=== PATIENT | male | born 1960 | race American Indian/Alaskan Native ===

== ENCOUNTER 2020-01-28 03:11 | Inpatient (IN) | payer OTHER ==
[~2020-01-28 03:11] MED LIST: ATROPINE 0.1% (1 MG/10 ML) CARDIAC SYRINGE ONE; CLOPIDOGREL 300 MG TAB ONE; DEXTROSE 50% IN WATER (25GM) 50 ML SYRINGE IV ONE; EPINEPHrine 1 MG/10 ML SYRINGE ONE; EPINEPHrine 30 MG/30 ML INJ IV ONE; HEPARIN 10,000 UNITS/10 ML VIAL ONE; SODIUM BICARB 8.4% 50 MEQ/50 ML SYRINGE IV ONE
[2020-01-28] MEDS ORDERED: CLOPIDOGREL 300 MG TAB PO ONE (03:30)
[2020-01-28] MEDS ORDERED: HEPARIN 1,000 UNIT/1 ML VIAL IV ONE (03:30)
--- NOTE | 2020-01-28 03:31 | Emergency Department Report ---
ED Chest Pain HPI - General Chief Complaint: Chest Pain Stated Complaint: CHEST PAIN Time Seen by Provider: 01/28/20 03:20 Source: patient, EMS Mode of arrival: Stretcher Limitations: No Limitations - History of Present Illness Initial Comments: 59-year-old male, history of hypertension (noncompliant with medication), presents to ED with chest pain. Patient admits to using alcohol, taking 1 Viagra pill, and using cocaine tonight. Patient states approximately 2 hours after the substances he began to experience substernal chest tightness. Nonradiating. He reports associated profuse diaphoresis with associated nausea. EMS attempted to transmit their twelve-lead EKG, however, they were unable to. EMS is suspicious that patient may have a STEMI. Patient was given aspirin by EMS. Patient has been hypotensive with systolic BP in the 90s. MD Complaint: chest pain -: hour(s) (1) Pain Location: substernal Pain Radiation: none Severity: severe Quality: tightness Consistency: constant Improves With: nothing Worsens With: nothing re: nausea, diaphoresis, dyspnea. denies: vomting Treatments Prior to Arrival: aspirin - Related Data Allergies Allergy/AdvReac Type Severity Reaction Status Date / Time No Known Allergies Allergy Verified 01/28/20 03:16 Heart Score - HEART Score History: Highly suspicious EKG: Significant ST-depression Age: 45-65 Risk factors: > 3 risk factors or hx of atherosclerotic disease Troponin: < normal limit HEART Score: 7 ED Review of Systems ROS: Stated complaint: CHEST PAIN Other details as noted in HPI Comment: All other systems reviewed and negative Respiratory: shortness of breath Cardiovascular: chest pain Gastrointestinal: nausea ED Past Medical Hx - Past Medical History Previous Medical History?: No - Surgical History Past Surgical History?: No - Social History Smoking Status: Current Every Day Smoker Substance Use Type: Alcohol, Cocaine ED Physical Exam - General Limitations: No Limitations General appearance: alert - Head Head exam: Present: atraumatic, normocephalic - Eye Eye exam: Present: normal appearance, EOMI - ENT ENT exam: Present: mucous membranes moist - Neck Neck exam: Present: normal inspection - Respiratory Respiratory exam: Present: normal lung sounds bilaterally. Absent: respiratory distress - Cardiovascular Cardiovascular Exam: Present: normal rhythm, bradycardia - GI/Abdominal GI/Abdominal exam: Present: soft. Absent: distended, tenderness - Extremities Exam Extremities exam: Present: normal inspection. Absent: pedal edema, calf tenderness - Neurological Exam Neurological exam: Present: alert, oriented X3, CN II-XII intact. Absent: motor sensory deficit - Psychiatric Psychiatric exam: Present: normal affect, normal mood - Skin Skin exam: Present: warm, dry, intact, normal color. Absent: rash ED Course Vital Signs 01/28/20 01/28/20 01/28/20 03:35 03:45 03:52 Pulse Rate 41 L 48 L 41 L Respiratory 11 L 15 12 Rate Blood Pressure 83/51 83/61 82/59 [Right] O2 Sat by Pulse 97 96 95 Oximetry EDELMIRA score - Ed[place]ira Score Age > 65: (0) No Aspirin use within the Past 7 Days: (0) No 3 or more CAD Risk Factors: (1) Yes 2 or more Angina events in past 24 hrs: (0) No Known CAD with more than 50% Stenosis: (0) No Elevated Cardiac Markers: (0) No ST Deviation Greater than 0.5mm: (1) Yes EDELMIRA Score: 2 ED Medical Decision Making - Lab Data Result diagrams: 01/28/20 Unknown 01/28/20 Unknown - EKG Data -: EKG Interpreted by Ks EKG shows normal: QRS complexes Rate: bradycardia (rate 42) - EKG Data Interpretation: other (junctional rhythm; inferior/posterior STEMI) - Radiology Data Radiology results: report reviewed, image reviewed - Medical Decision Making 59-year-old male presents to ED with chest pain. EKG shows acute LA, suggesting inferior/posterior LA. Patient is hypotensive with systolic BP in the 80s and bradycardic with heart rate as low as 41. Patient received aspirin from EMS. Here in ED he received Plavix and heparin bolus. He also received atropine 0.5 mg x 2 for his bradycardia, along with normal saline bolus for his hypotension. Dr. Ornelas to take patient to [facility]. Patient will be admitted by hospitalist, Dr. Moses, for further management. - Differential Diagnosis STEMI Critical Care Time: Yes Critical care time in (mins) excluding proc time.: 35 Critical care attestation.: If time is entered above; I have spent that time in minutes in the direct care of this critically ill patient, excluding procedure time. Critical Care Time: 35 min ED Disposition Clinical Impression: STEMI (ST elevation myocardial infarction) Disposition: -09 OP ADMIT IP TO THIS HOSP Is pt being admited?: Yes Condition: Critical Time of Disposition: 03:57
[2020-01-28] MEDS ORDERED: SODIUM CHLORIDE 0.9% 1000 ML 1,000 ML IV ONE (03:32)
[2020-01-28] MEDS ORDERED: ATROPINE 0.1% (1 MG/10 ML) CARDIAC SYRINGE ONE ×4 (03:41→05:08)
--- NOTE | 2020-01-28 03:43 | XRay Report ---
CHEST 1 VIEW INDICATION: chest pain COMPARISON: None FINDINGS: SUPPORT DEVICES: None. HEART / MEDIASTINUM: No significant abnormality. LUNGS / PLEURA: No significant pulmonary or pleural abnormality. No pneumothorax. ADDITIONAL FINDINGS: IMPRESSION: 1. No acute cardiopulmonary disease Signer Name: Wayne Ricci MD Signed: 01/28/2020 3:39 AM Workstation Name: [id number]
[2020-01-28 03:50] LABS: Basophils # (Auto) 0.1 K/mm3 (0.0-0.1); Basophils % (Auto) 0.5 % (0.0-1.8); Eosinophils % (Auto) 0.3 % (0.0-4.3); Hematocrit 43.1 % (35.5-45.6); Hemoglobin 14.5 gm/dl (11.8-15.2); Lymphocytes # (Auto) 1.5 K/mm3 (1.2-5.4); Mean Corpuscular HGB Conc 34 % (32-34); Mean Corpuscular Volume 93 fl (84-94); Monocytes # (Auto) 0.6 K/mm3 (0.0-0.8); Monocytes % (Auto) 4.1 % (0.0-7.3); Platelet Count 251 K/mm3 (140-440); Red Blood Count 4.65 M/mm3 (3.65-5.03)
[2020-01-28 04:00] LABS: INR 1.09 (0.87-1.13)
[2020-01-28] MEDS ORDERED: HEPARIN 10,000 UNITS/10 ML VIAL IV ONE (04:00)
[2020-01-28] MEDS ORDERED: MIDAZOLAM 2 MG/2 ML INJ ONE (04:01)
[2020-01-28] MEDS ORDERED: fentaNYL 100 MCG/2 ML INJ ONE (04:01)
[2020-01-28] MEDS ORDERED: HEPARIN/NS 5000 UNIT/500ML 1,000 ML IR ONE (04:02)
[2020-01-28] MEDS ORDERED: VERAPAMIL 5 MG/2 ML INJ ONE (04:02)
[2020-01-28] MEDS ORDERED: SODIUM CHLORIDE 0.9% 1000 ML 1,000 ML ONE (04:02)
[2020-01-28 04:11] LABS: BUN/Creatinine Ratio 9; Blood Urea Nitrogen 12 mg/dL (9-20); Calcium 9.2 mg/dL (8.4-10.2); Hemolysis Index 147
[2020-01-28] MEDS: LIDOCAINE (2%) 20 MG/1 ML VIAL 20 ML MDV INFILTRATI ONE ×2 (04:15→05:19)
[2020-01-28] MEDS: HEPARIN 10,000 UNITS/10 ML VIAL ONE ×2 (04:17→04:52)
[2020-01-28 04:22] LABS: Partial Thromboplastin Time 176.2 Sec. (24.2-36.6)
[2020-01-28] MEDS ORDERED: DOPamine/D5W 800 MG/250 ML 800 MG/250 ML BAG IV ONE (04:23)
[2020-01-28] MEDS ORDERED: HEPARIN/NS 5000 UNIT/500ML 500 ML IR ONE ×2 (04:31→05:10)
[2020-01-28] MEDS ORDERED: TIROFIBAN/NS 12,500 MCG/250 ML BAG IV ONE (04:39)
[2020-01-28] MEDS ORDERED: ONDANSETRON 4 MG/2 ML INJ ONE (04:46)
[2020-01-28] MEDS ORDERED: SODIUM CHLORIDE 0.9% 50 ML ONE (04:51)
[2020-01-28] MEDS ORDERED: AMIODARONE 150 MG/3 ML INJ IV ONE (04:51)
[2020-01-28] MEDS ORDERED: NORepinephrine/NS 4 MG-250 ML 4 MG/250 ML BAG IV SCH (05:00)
[2020-01-28] MEDS ORDERED: ACETAMINOPHEN 325 MG TAB PO PRN (05:23)
--- NOTE | 2020-01-28 05:35 | History and Physical Report ---
History of Present Illness Date of examination: 01/28/20 Date of admission: 01/28/20 03:58 Chief complaint: Chest Pain History of present illness: Patient is a 59-year-old -[place] male with known history of hypertension-( noncompliant with his medication) presenting to the emergency room today complaining of chest pain. Patient admits that he has been taking alcohol, 1 pill of Viagra I used cocaine tonight. He started experiencing some chest pain with feels like tightness a few hours after taking the above medications. Chest pain is said to be nonr adiating but he had associated nausea and diaphoresis. Patient arrived in the emergency room by EMS and was given aspirin in route to the hospital. He was said to be hypotensive with systolic blood pressure in the 90s. EKG was suspicious for STEMI. Patient was taken to the [facility]. Spoken with transplant immunologist . Findings were that of complete occlusion of the circumflex. No stent was placed.Balloon placed. Procedure done via right radial. Patient was started on low-dose heparin drip and Aggrastat. Patient will be reevaluated by the transplant immunologist within the next 24 hours. He will be closely monitored in the intensive care unit. Past History Past Medical History: No medical history Past Surgical History: No surgical history Social history: smoking (Current daily Smoker), alcohol abuse, other (Cocaine Abuse) Family history: no significant family history Medications and Allergies Allergies Allergy/AdvReac Type Severity Reaction Status Date / Time No Known Allergies Allergy Verified 01/28/20 03:16 Active Meds: Active Medications Acetaminophen (Tylenol) 650 mg PO Q6H PRN PRN Reason: Pain, Mild (1-3) Norepinephrine (Levophed Drip 4 Mg/Ns 250 Ml) 4 mg in 250 mls @ 7.5 mls/hr IV TITR MARIZOL; Protocol Last Admin: 01/28/20 04:49 Dose: 4 mls Documented by: Morphine Sulfate (Morphine) 2 mg IV Q5MIN PRN PRN Reason: Chest Pain Sodium Chloride (Sodium Chloride Flush Syringe 10 Ml) 10 ml IV PRN PRN PRN Reason: LINE FLUSH Sodium Chloride (Sodium Chloride Flush Syringe 10 Ml) 10 ml IV BID MARIZOL Sodium Chloride (Sodium Chloride Flush Syringe 10 Ml) 10 ml IV PRN PRN PRN Reason: LINE FLUSH Review of Systems Constitutional: no fever, no chills Ears, nose, mouth and throat: no nasal congestion, no sore throat Cardiovascular: chest pain, palpitations, no syncope Respiratory: no cough, no shortness of breath Genitourinary Male: no dysuria, no hematuria, no flank pain Musculoskeletal: no neck pain, no low back pain Integumentary: no rash, no pruritis Neurological: no headaches, no confusion Psychiatric: no anxiety, no depression Exam - Constitutional Vitals: Temp Pulse Resp BP Pulse Ox 41 L 12 82/59 95 01/28/20 03:52 01/28/20 03:52 01/28/20 03:52 01/28/20 03:52 General appearance: Present: mild distress, well-nourished - EENT Eyes: Present: PERRL, EOM intact ENT: hearing intact, clear oral mucosa, dentition normal - Neck Neck: Present: supple, normal ROM - Respiratory Respiratory effort: normal Respiratory: bilateral: CTA - Cardiovascular Rhythm: regular Heart Sounds: Present: S1 & S2. Absent: gallop, systolic murmur, diastolic murmur, rub - Extremities Extremities: no ischemia, pulses intact, pulses symmetrical, No edema, Full ROM Peripheral Pulses: within normal limits - Abdominal General gastrointestinal: Present: soft, non-tender, non-distended, normal bowel sounds. Absent: mass - Integumentary Integumentary: Present: clear, warm, dry - Musculoskeletal Musculoskeletal: strength equal bilaterally - Psychiatric Psychiatric: appropriate mood/affect, intact judgment & insight, memory intact, cooperative - Neurologic Neurologic: CNII-XII intact, no focal deficits, moves all extremities HEART Score - HEART Score EKG: Significant ST-depression Age: 45-65 Risk factors: > 3 risk factors or hx of atherosclerotic disease Troponin: Troponin T < 0.010 ng/mL (0.00-0.029) 01/28/20 Unknown Troponin: < normal limit Results - Labs CBC & Chem 7: 01/28/20 Unknown 01/28/20 Unknown Labs: Abnormal lab results 01/28/20 01/28/20 01/28/20 Range/Units Unknown Unknown Unknown WBC 15.5 H (4.5-11.0) K/mm3 Lymph % (Auto) 10.0 L (13.4-35.0) % Seg Neutrophils % 85.1 H (40.0-70.0) % Seg Neutrophils # 13.2 H (1.8-7.7) K/mm3 APTT 176.2 H* (24.2-36.6) Sec. Carbon Dioxide 15 L (22-30) mmol/L Creatinine 1.4 H (0.8-1.3) mg/dL Glucose 132 H (75-100) mg/dL Assessment and Plan - Patient Problems (1) STEMI (ST elevation myocardial infarction) Current Visit: Yes Status: Acute Plan to address problem: Patient was taken to the [facility] and findings were notable complete occlusion of the circumflex. Patient started on Aggrastat and low-dose heparin drip. (2) DVT prophylaxis Current Visit: Yes Status: Acute Plan to address problem: Patient currently on anticoagulation. (3) Full code status Current Visit: Yes Status: Acute
[2020-01-28] MEDS ORDERED: MORPHINE 2 MG/1 ML INJ IV PRN (05:57)
[2020-01-28] MEDS ORDERED: HEPARIN/ 0.45% NACL DRIP 25,000 UNIT/500 ML BAG IV SCH (06:00)
[2020-01-28] MEDS: NORepinephrine/NS 4 MG-250 ML 4 MG/250 ML BAG IV SCH ×3 (07:00→11:56)
[2020-01-28] MEDS ORDERED: TIROFIBAN/NS 12,500 MCG/250 ML BAG IV SCH (07:00)
--- NOTE | 2020-01-28 08:56 | Consultation ---
History of Present Illness Consult date: 01/28/20 Requesting physician: ERIC DELATORRE Consult reason: other (STEMI) History of present illness: Pt is a 59 y.o. AA male with a hx of HTN, previously unknown to our practice, who presented overnight with complaints of constant substernal chest tightness associated with diaphoresis and nausea x 3 hours prior to arrival. Pt admits to EtOH use and cocaine use prior to onset of chest pain. He also took Viagra x 1 yesterday evening. Pt denies any additional cardiac complaints. Upon arrival, he was found to be hypotensive with SBP 80-90s. He was given NS bolus. Initial ECG showed sinus bradycardia with ST elevation suggestive of inferior/posterior ischemia. Pt was given IV atropine x 1, along with Plavix and IV heparin bolus. 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 Balloon placed, no stent. Pt is currently hemodynamically unstable - on Levo drip @ 26 mcg/min. He also remains on Aggrastat drip and heparin drip. Upon exam, pt is agitated and tachycardic in the 130s. No previous cardiac workup available for review. Past History Past Medical History: hypertension Social history: smoking (current daily smoker), alcohol abuse, other (cocaine abuse) Medications and Allergies Allergies Allergy/AdvReac Type Severity Reaction Status Date / Time No Known Allergies Allergy Verified 01/28/20 03:16 Active Meds: Active Medications Acetaminophen (Tylenol) 650 mg PO Q6H PRN PRN Reason: Pain, Mild (1-3) Aspirin (Ecotrin) 325 mg PO QDAY MARIZOL Heparin Sodium/Sodium Chloride (Heparin/ 0.45% Nacl-25,000 Unit/500 Ml) 25,000 unit in 500 mls @ 18 mls/hr IV TITRATE MARIZOL; Protocol Last Admin: 01/28/20 06:18 Dose: 20 mls Documented by: Tirofiban/Sodium Chloride (Aggrastat Drip (12.5 Mg/250 Ml)) 12,500 mcg in 250 mls @ 6 mls/hr IV DIRECT MARIZOL; Protocol Stop: 01/29/20 10:30 Last Admin: 01/28/20 08:30 Dose: 6 mls/hr Documented by: Norepinephrine (Levophed Drip 4 Mg/Ns 250 Ml) 4 mg in 250 mls @ 7.5 mls/hr IV TITR MARIZOL; Protocol Morphine Sulfate (Morphine) 2 mg IV Q5M PRN PRN Reason: Chest Pain unrelieved by NTG Sodium Chloride (Sodium Chloride Flush Syringe 10 Ml) 10 ml IV BID MARIZOL Sodium Chloride (Sodium Chloride Flush Syringe 10 Ml) 10 ml IV PRN PRN PRN Reason: LINE FLUSH Review of Systems Constitutional: sweats, no fever, no chills Ears, nose, mouth and throat: no nasal congestion, no sore throat Cardiovascular: chest pain, shortness of breath, no orthopnea, no palpitations, no edema, no syncope, no lightheadedness, no dyspnea on exertion, no paroxysmal nocturnal dyspnea, no claudication Respiratory: shortness of breath, no cough, no dyspnea on exertion, no congestion, no wheezing Gastrointestinal: nausea, no abdominal pain, no vomiting, no diarrhea, no constipation Genitourinary Male: no dysuria, no flank pain Musculoskeletal: no neck stiffness, no neck pain, no myalgias Integumentary: no rash, no wounds Neurological: no head injury, no paralysis, no weakness, no parathesias, no numbness, no tingling, no seizures, no syncope, no vertigo, no headaches Endocrine: no cold intolerance, no heat intolerance, no polydipsia, no polyuria Hematologic/Lymphatic: no easy bruising, no easy bleeding Allergic/Immunologic: no urticaria Physical Examination Last Vital Signs Temp 97.7 F 01/28/20 08:00 Pulse 41 L 01/28/20 03:52 Resp 12 01/28/20 03:52 BP 82/59 01/28/20 03:52 Pulse Ox 95 01/28/20 03:52 General appearance: mild distress HEENT: Positive: EOMI, Normocephaly, Mucus Membranes Moist Neck: Positive: neck supple, trachea midline. Negative: JVD/HJR Cardiac: Positive: S1/S2, Tachycardia Lungs: Positive: Decreased Breath Sounds, Rhonchi Neuro: Positive: Grossly Intact Abdomen: Positive: Soft, Active Bowel Sounds. Negative: Tender Skin: Negative: Rash Incision: Cardiac Cath Site (small R groin hematoma) Musculoskeletal: No Pain Extremities: Present: upper extr. pulses, lower extr. pulses, edema (++ scrotal edema) Results 01/28/20 Unknown 01/28/20 Unknown Coagulation 01/28/20 Range/Units Unknown PT 14.3 (12.2-14.9) Sec. INR 1.09 (0.87-1.13) APTT 176.2 H* (24.2-36.6) Sec. CBC 01/28/20 Range/Units Unknown WBC 15.5 H (4.5-11.0) K/mm3 RBC 4.65 (3.65-5.03) M/mm3 Hgb 14.5 (11.8-15.2) gm/dl Hct 43.1 (35.5-45.6) % Plt Count 251 (140-440) K/mm3 Lymph # 1.5 (1.2-5.4) K/mm3 Dickson # 0.6 (0.0-0.8) K/mm3 Eos # 0.0 (0.0-0.4) K/mm3 Baso # 0.1 (0.0-0.1) K/mm3 Comprehensive Metabolic Panel 01/28/20 Range/Units Unknown Sodium 139 (137-145) mmol/L Potassium 3.8 (3.6-5.0) mmol/L Chloride 100.9 (98-107) mmol/L Carbon Dioxide 15 L (22-30) mmol/L BUN 12 (9-20) mg/dL Creatinine 1.4 H (0.8-1.3) mg/dL Glucose 132 H (75-100) mg/dL Calcium 9.2 (8.4-10.2) mg/dL - Imaging and Cardiology Echo: pending Cardiac cath: report reviewed EKG: report reviewed, image reviewed EKG interpretations - Telemetry EKG Rhythm: Sinus Tachycardia - EKG Sinus rhythms and dysrhythmias: sinus bradycardia Repolarization changes or abnormalities: ST or T wave suggestive of ischemia Myocardial infarction: inferior ME (acute or rec, posterior ME (acute or re Assessment and Plan D/c Aggrastat drip. Cont heparin drip, bASA, and Plavix. Wean pressors as tolerated. Suspect withdrawal sx. Consider CIWA protocol. May require intubation. Echo pending. Plan for repeat [facility] tmr. NPO after midnight. Pt seen in conjunction with Dr. Ornelas, who agrees with the assessment and plan of care. - Patient Problems (1) Acute myocardial infarction Current Visit: Yes Status: Acute Qualifiers: Myocardial infarction type: ST elevation myocardial infarction Involved coronary artery: left circumflex coronary artery Qualified Code(s): I21.21 - ST elevation (STEMI) myocardial infarction involving left circumflex coronary artery (2) Groin hematoma Current Visit: Yes Status: Acute (3) Drug withdrawal Current Visit: Yes Status: Suspected Plan to address problem: Cocaine, EtOH (4) H/O: HTN (hypertension) Current Visit: No Status: Chronic Plan to address problem: Hypotensive this admission (5) Cocaine abuse Current Visit: Yes Status: Chronic (6) ETOH abuse Current Visit: Yes Status: Chronic (7) Medical non-compliance Current Visit: Yes Status: Chronic
[2020-01-28] MEDS ORDERED: LORazepam 2 MG/ML VIAL IV ONE (09:42)
[2020-01-28] MEDS ORDERED: ASPIRIN EC 325 MG TAB PO SCH (10:00)
--- NOTE | 2020-01-28 10:31 | Consultation ---
History of Present Illness Consult date: 01/28/20 Requesting physician: BETO BERNAL History of present illness: Pt is a 59 y.o. AA male with a hx of HTN, previously unknown to our practice, who presented overnight with complaints of constant substernal chest tightness associated with diaphoresis and nausea x 3 hours prior to arrival. Pt admits to EtOH use and cocaine use prior to onset of chest pain. He also took Viagra x 1 yesterday evening. Pt denies any additional cardiac complaints. Upon arrival, he was found to be hypotensive with SBP 80-90s. He was given NS bolus. Initial ECG showed sinus bradycardia with ST elevation suggestive of inferior/posterior ischemia. Pt was given IV atropine x 1, along with Plavix and IV heparin bolus. 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 Pt is currently hemodynamically unstable [place] [place] also [place] on heparin drip. Admitted to the ICU . I have been consulted for critical care management Patient seen and examined. Extreme agitation, hypotensive. Oxygen saturations, 98%, just received IV Ativan for agitation Past History Past Medical History: hypertension Past Surgical History: No surgical history Social history: smoking (current daily smoker), alcohol abuse, other (cocaine abuse) Family history: no significant family history Medications and Allergies Allergies Allergy/AdvReac Type Severity Reaction Status Date / Time No Known Allergies Allergy Verified 01/28/20 03:16 Active Meds: Active Medications Acetaminophen (Tylenol) 650 mg PO Q6H PRN PRN Reason: Pain, Mild (1-3) Aspirin (Ecotrin) 325 mg PO QDAY MARIZOL Heparin Sodium/Sodium Chloride (Heparin/ 0.45% Nacl-25,000 Unit/500 Ml) 25,000 unit in 500 mls @ 18 mls/hr IV TITRATE MARIZOL; Protocol Last Admin: 01/28/20 06:18 Dose: 20 mls Documented by: Tirofiban/Sodium Chloride (Aggrastat Drip (12.5 Mg/250 Ml)) 12,500 mcg in 250 mls @ 6 mls/hr IV DIRECT MARIZOL; Protocol Stop: 01/29/20 10:30 Last Admin: 01/28/20 08:30 Dose: 6 mls/hr Documented by: Norepinephrine (Levophed Drip 4 Mg/Ns 250 Ml) 4 mg in 250 mls @ 7.5 mls/hr IV TITR MARIZOL; Protocol Last Titration: 01/28/20 09:15 Dose: 22 mcg/min, 82.5 mls/hr Documented by: Morphine Sulfate (Morphine) 2 mg IV Q5M PRN PRN Reason: Chest Pain unrelieved by NTG Sodium Chloride (Sodium Chloride Flush Syringe 10 Ml) 10 ml IV BID MARIZOL Sodium Chloride (Sodium Chloride Flush Syringe 10 Ml) 10 ml IV PRN PRN PRN Reason: LINE FLUSH Review of Systems ROS unobtainable: due to mental status Physical Examination Vital signs: Vital Signs Pulse Resp BP Pulse Ox 41 L 11 L 83/51 97 01/28/20 03:35 01/28/20 03:35 01/28/20 03:35 01/28/20 03:35 General appearance: mild distress, extreme agitation HEENT: Positive: EOMI, Normocephalic, Mucus Membranes Moist Neck: Positive: neck supple, trachea midline. Negative: JVD/HJR Cardiac: Positive: S1/S2, Tachycardia Lungs: Positive: Decreased Breath Sounds, Rhonchi Neuro: Positive: moves all extremities, not obeying commands Abdomen: Positive: Soft, Active Bowel Sounds. Negative: Tender Skin: Negative: Rash Incision: Cardiac Cath Site (R groin hematoma) Musculoskeletal: No Pain Extremities: Present: upper extr. pulses, lower extr. pulses, edema (++ scrotal edema) Results - Laboratory Findings CBC and BMP: 01/28/20 Unknown 01/28/20 Unknown PT/INR, D-dimer PT 14.3 Sec. 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 Cocaine use disorder Cardiogenic shock Tobacco use disorder Leukocytosis Anemia- blood loss, drop of hemoglobin by 2gram Metabolic acidosis -Supplemental oxygen to keep O2 sats >92% -Stat ABG ordered to evaluate acid base -Add vasopressin to vasopressor support -Get CBC, may nee supportive blood transfusions in view of STEMI an active coronary ischemia -If we are unable to support blood pressure, may need placement of IABP -Avoid benzodiazepines if possible -Treat cocaine withdrawal symptoms, nicotine withdrawal precatuions -Cardioprotective measures, STEMI per Cardiology -Place small bowel feeding tube fro nutritional support and medications- his mental status at this time puts him at high risk for aspiration -Aspiration precautions, HOB >40 -Keep NPO for now -Monitor the right groin hematoma Critical care time 40 mins, in this critically ill patient with STEMI, cardiogen ic shock Condition- Critical Prognosis- Guarded Code status -Full code
[2020-01-28] MEDS ORDERED: ASPIRIN EC 81 MG TAB PO SCH (11:00)
--- NOTE | 2020-01-28 11:15 | Consultation ---
CARDIOLOGY CONSULTATION HISTORY OF PRESENT ILLNESS: The patient is a 59-year-old -[place] gentleman with history of hypertension and hyperlipidemia for a while, but he is not on any medications, without any medical followup, was using cocaine and also drinking alcohol along with using Viagra and started having chest pain 1-2 hours prior to presentation to the Emergency Room. The EKG done by the paramedics showed evidence of ST elevations in the inferior leads along with ST depression consistent with acute inferior STEMI. Hence, a STEMI protocol was followed and the patient was taken to the catheterization laboratory on an emergency basis. The patient's blood pressure at the time of presentation to the catheterization is low, 70 systolic with heart rate 50 beats per minute. The patient is on dopamine. The patient is still having chest pain. Please refer to the catheterization laboratory for further details. The patient's other past medical history except for hypertension and hyperlipidemia, denies any previous history of myocardial infarction or congestive heart failure, strokes or seizures. SOCIAL HISTORY: He uses drugs including cocaine, drinks alcohol and probably smokes. REVIEW OF SYSTEMS: Denies any previous history of myocardial infarction, no complaints of chest pains in the recent past. However, did not have any medical followup, on no medication. No history of strokes or seizures. No history of pulmonary emboli or DVT. No history of GI bleed. Denies any fever, coughing, chills, no urinary symptoms prior to this episode. No leg swelling. No orthopnea. PHYSICAL EXAMINATION: GENERAL: The patient on presentation to the catheterization laboratory, he is hypotensive, bradycardic. Having chest pain. No respiratory distress, breathing reasonably well. HEENT: Unremarkable. Conjunctivae pink. Sclerae anicteric. HEART: Regular, slow, no significant murmurs. LUNGS: Clear. ABDOMEN: Benign. EXTREMITIES: Without edema. NEUROLOGIC: Alert, oriented x 3. FINAL IMPRESSION: Acute inferior wall myocardial infarction of 1-2 hours' duration with hypotension, bradycardia. EKG findings suggestive of acute inferior ST-elevation myocardial infarction. The patient was continued on supportive treatment with dopamine and Levophed to support the blood pressure. The patient was taken to the catheterization laboratory and right radial approach was used. This showed occlusion of a large, dominant circumflex artery with huge amounts of thrombus in the circumflex artery and 60% mid LAD lesion, which is a large vessel and very small nondominant RCA showing a 70% mid lesion. The patient underwent emergency catheterization and angioplasty using right radial artery. The patient was hypotensive and bradycardic with episodic reperfusion arrhythmia including ventricular tachycardia. Required IV amiodarone. The patient had extensive thrombus in the circumflex artery. Underwent multiple balloon dilations and started on Aggrastat. His lesions markedly improved with Aggrastat and his thrombus also improved with EDELMIRA 0 flow being converted to EDELMIRA 3. The patient continued to be hypotensive and bradycardic and plans being made to insert a temporary pacemaker and also an intra-aortic balloon pump. However, after inserting the venous line in the groin, the patient's heart rate came to be tachycardic and blood pressure went up to 160-170 systolic. Considering this, no temporary pacemaker was inserted and no intra-aortic balloon pump was inserted. A venous sheath was left in the right groin. Radial sheath was removed and pressure bandage was applied at the end of the procedure. The patient is alert, oriented x 3, in no acute distress. Chest pain completely improved. The patient is in mild sinus tachycardia, blood pressure 110/70. Acute inferior wall myocardial infarction with extensive thrombosis involving the dominant circumflex artery, requiring balloon angioplasty and IIb/IIIa inhibitor, Aggrastat. Also, heparin was given. The patient will be continued on Levophed for now. His dopamine was discontinued in the catheterization laboratory. PLAN: Plan at this time is to monitor him in the CCU. Continue Aggrastat for 24 hours. Continue low intensity heparin. Continue aspirin and Plavix and atorvastatin. We will consider beta blockers if the blood pressure and heart rate continues to be stable. It is to be noted the patient's left ventricular systolic function appears to be normal. Findings were explained to the patient. No family members available. The patient is being admitted to ICU and will be closely monitored. JOB# [id number] DANIELITO/CHARI
[2020-01-28 11:27] LABS: Hematocrit 25.3 % (35.5-45.6); Mean Corpuscular HGB Conc 32 % (32-34); Mean Corpuscular Volume 98 fl (84-94); Platelet Count 204 K/mm3 (140-440); Red Blood Count 2.59 M/mm3 (3.65-5.03); Red Cell Distribution Width 14.4 % (13.2-15.2)
[2020-01-28 11:35] LABS: INR 1.61 (0.87-1.13)
[2020-01-28 11:38] LABS: Chol/HDL Ratio 2.74 %
[2020-01-28] MEDS ORDERED: SODIUM CHLORIDE 0.9% 500 ML 500 ML IV SCH (12:00)
[2020-01-28] MEDS ORDERED: QUEtiapine 200 MG TAB PO SCH (12:00)
[2020-01-28] MEDS ORDERED: VASOPRESSIN 20 UNIT in SODIUM CHLORIDE 0.9% 100 ML IV SCH (12:00)
[2020-01-28] MEDS: PHENobarbitaL 130 MG/ML VIAL IV STA ×2 (12:05→12:10)
[2020-01-28 12:18] LABS: Partial Thromboplastin Time > 240.0 Sec. (24.2-36.6)
[2020-01-28] MEDS ORDERED: SODIUM CHLORIDE 0.9% 1000 ML 1,000 ML IV SCH (12:30)
[2020-01-28 12:36] LABS: Band Neutrophils # (Manual) 0.7 K/mm3; Basophils % (Manual) 0 % (0.0-1.8); Eosinophils % (Manual) 0 % (0.0-4.3); Monocytes % (Manual) 0 % (0.0-7.3); Myelocytes # (Manual) 0.4 K/mm3; Platelet Estimate Consistent w Auto; RBC Morphology Normal; Total Cells Counted 100
--- NOTE | 2020-01-28 12:38 | Event Note ---
Date: 01/28/20 I responded to the floor full CODE BLUE. Hospitalist at the bedside directing ACLS. I performed a crash intubation - Intubation Time Out Performed: Yes Sedative: none Laryngoscope: none Size: 4 ET Tube Size: 7.5 Tube Secured Depth (cm): 24 Tube Secured Location: lips Tube Placement Confirmation: visualized tube passing t, equal breath sounds bilat, no breath sounds over epi, confirmation by capnometr Intubation Complications: none
[2020-01-28 12:40] LABS: ABG Base Excess -3.2 mmol/L (-2.0-3.0); ABG HCO3 19.6 mmol/L (20.0-26.0); ABG Methemoglobin 0.7 % (0.0-1.5); ABG Oxygen Saturation 87.6 % (95.0-99.0); ABG PCO2 29.7 mm Hg; ABG PH 7.439 pH Units (7.350-7.450); ABG PO2 53.3 mm Hg (80.0-90.0)
[2020-01-28] MEDS ORDERED: SODIUM BICARB 8.4% 50 MEQ/50 ML SYRINGE IV STA (12:48)
[2020-01-28] MEDS ORDERED: fentaNYL 100 MCG/2 ML INJ IV PRN (12:53)
[2020-01-28] MEDS ORDERED: LIP THERAPY VASELINE TP PRN (12:53)
[2020-01-28] MEDS ORDERED: MINERAL OIL/PETROLATUM, WHITE OPHTH OINT 3.5 GM OU PRN (12:53)
--- NOTE | 2020-01-28 12:54 | Event Note ---
Date: 01/28/20 Code blue at 12:23PM. CPR was initiateed immediately at bedside. He received 3 amp EPI, 1 bicarb, Calcium gluconate and atropine. ROSC obtained. Vitals after ROSC notable for hypotension. Patient already on levophed and vasopressin Bolus 500 cc ordered. Will add phenylephrine Cardiology paged.
[2020-01-28] MEDS ORDERED: fentaNYL DRIP Premix 2,000 MCG/100 ML BAG IV SCH (13:00)
[2020-01-28 13:42] LABS: Calcium 7.9 mg/dL (8.4-10.2)
[2020-01-28] MEDS ORDERED: PHENYLEPHRINE 100 MG in SODIUM CHLORIDE 0.9% 90 ML IV SCH (13:45)
[2020-01-28] MEDS ORDERED: LACTATED RINGERS 250 ML IV ONE (13:47)
[2020-01-28] MEDS ORDERED: DOPamine/D5W 800 MG/250 ML 800 MG/250 ML BAG IV SCH (14:00)
--- NOTE | 2020-01-28 14:04 | Event Note ---
Date: 01/28/20 Cardiopulmonary arrest- asystole with ROSC Orally intubated now. Ordered Cook catheter, ABG, 2 amp bicarbonate, stat BMP Fentanyl infusion, small bowel feeding tube
--- NOTE | 2020-01-28 14:16 | XRay Report ---
CHEST 1 VIEW 01/28/2020 1:02 PM INDICATION / CLINICAL INFORMATION: ETT placement. COMPARISON: None available. FINDINGS: SUPPORT DEVICES: Endotracheal tube tip projects approximately 3 cm superior to the dion. HEART / MEDIASTINUM: Stable. LUNGS / PLEURA: Diffuse bilateral interstitial prominence has developed since earlier today. No pneum othorax. ADDITIONAL FINDINGS: No significant additional findings. IMPRESSION: 1. Endotracheal tube projects in expected position. 2. Diffuse interstitial prominence bilaterally is suggestive of interstitial edema. Signer Name: Ace Villalpando MD Signed: 01/28/2020 2:12 PM Workstation Name: [id number]
[2020-01-28 14:18] VITALS: BP 62/43
--- NOTE | 2020-01-28 14:25 | Event Note ---
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 cause of appears multifactorial including acute HI with cardiogenic shock,multiple drug use and also withdrawl syndrome prior to his . explained findings to patient's family.
--- NOTE | 2020-01-28 15:40 | Death Summary ---
Summary - Providers Date of service: 01/28/20 Consults: 01/28/20 Consult to Cardiac Rehabilitation [CONS] Routine Reason For Exam: Phase I Consult to Cardiac Rehabilitation [CONS] Routine Reason For Exam: post pci 01/28/20 04:14 Consult to Physician [CONS] Stat Comment: Consulting Provider: KENNETH BOLES Physician Instructions: Reason For Exam: stemi 01/28/20 05:23 Consult to Dietitian/Nutrition [CONS] Routine Physician Instructions: Reason For Exam: Reason for Consult: Diet education 01/28/20 06:16 Consult to Physician [CONS] Routine Comment: Consulting Provider: LINDA MANZANO Physician Instructions: Reason For Exam: CHEST PAIN, MYOCARDIAL INFARCTION S/P CATH. Attending: BETO BERNAL - summary Date of admission: 01/28/20 03:58 Date of : 01/28/20 Reason for admission: STEMI Procedures/treatments rendered: Patient is a 59-year-old -[place] male with known history of hypertension-( noncompliant with his medication) presenting to the emergency room today complaining of chest pain. Patient admits that he has been taking alcohol, 1 pill of Viagra I used cocaine tonight. He started experiencing some chest pain with feels like tightness a few hours after taking the above medications. Chest pain is said to be nonradiating but he had associated nausea and diaphoresis. Patient arrived in the emergency room by EMS and was given aspirin in route to the hospital. He was said to be hypotensive with systolic blood pressure in the 90s. EKG was suspicious for STEMI. Patient was taken to the [facility]. Spoken with locomotive supervisor . Findings were that of complete occlusion of the circumflex. No stent was placed. Balloon placed. Procedure done via right radial and he was admitted to the ICU. He remained hypotensive and had to be placed on pressors. Jr jarvis was called this AM and ACLS protocol was initiated with ROSC. Cardiology team was consulted and dopamine was added. Plan to place IABP was initiated but immediately coded 2 times and despite full ACLS protocol, he could not get any ROSC. Patient was pronounced at 14:00. I called family and spoke with and daughter and extended my condolences. - Final diagnosis (1) Cardiogenic shock Note: Final diagnosis: (2) STEMI (ST elevation myocardial infarction) Note: Final diagnosis: (3) ETOH abuse Note: Final diagnosis: (4) Drug withdrawal Note: Final diagnosis:
[2020-01-29] MEDS ORDERED: CLOPIDOGREL 75 MG TAB PO SCH (10:00)
[2020-01-29] MEDS ORDERED: ASPIRIN EC 81 MG TAB PO SCH (10:00)
--- NOTE | 2020-01-30 14:42 | Cardiac Catherization Report ---
CARDIAC CATHETERIZATION AND CORONARY INTERVENTION REPORT CLINICAL INFORMATION: This is an emergency procedure for STEMI protocol. The patient is a 59-year-old -Fil[place] gentleman with history of hypertension and hyperlipidemia. He used to be on medication, but did not have any medical followup and on no medication for a long time. Otherwise, denies any previous cardiac history. The patient apparently was using cocaine and drinking alcohol in addition to using Viagra and started having chest pain and paramedics were called who performed an EKG, which showed ST elevations in the inferior leads along with ST depressions suggestive of acute inferior STEMI and the patient presented to the Emergency Room with low blood pressure, started on dopamine. Given Plavix and heparin in the Emergency Room, was transferred to the catheterization laboratory on an emergency basis. The patient's blood pressure at the time of presentation to the catheterization laboratory 60-70 systolic with heart rate of about 40-50 with junctional rhythm and sinus bradycardia. The patient still continues to have chest pain. The patient was continued on dopamine and Levophed was added. The patient underwent emergency catheterization, which showed the following findings. DESCRIPTION OF PROCEDURE: The patient was brought to the catheterization laboratory in the past on an emergency basis. The patient was prepared in a standard fashion. The patient, as mentioned above, was hypotensive, bradycardic requiring dopamine and Levophed. Not intubated. Continues to have chest pain. Right radial artery area was prepared in a standard fashion. Sterile drapes were applied. Local anesthesia was given in the right wrist area and right radial artery puncture was made using 21-gauge arterial puncture needle. Subsequently, 5-Tongan slender sheath was introduced. The patient received 4000 units of heparin in the Emergency Room and was given 3000 units of heparin in the catheterization laboratory in addition to verapamil. Left ventriculogram and coronary angiography was performed using a 6-Tongan multipurpose catheter. For obtaining the left coronary angiograms, EBU 3.5 guiding catheter was used. Following findings were noted. Left ventriculogram done in PALMER projection using hand injection in PALMER and BRANDO projection showed normal sized left ventricle with normal contractility. End-diastolic pressure of 25. Mitral regurgitation was not evaluated. HEMODYNAMICS: 1. Aortic pressure 85/47 on dopamine and Levophed. Left ventricular pressure 85/25. 2. Right coronary artery, small nondominant vessel shows smooth 70% lesion in the mid part of this is segmental and 1.5 mm in caliber. 3. Left coronary artery arises normally from left coronary cusp. Left main is short without significant disease. LAD shows mild irregularities proximally with a 50-60% smooth long lesion in the mid part; however, this is smooth. LAD curves around the apex and is tortuous with no significant disease except for the mid lesion. Circumflex: Circumflex artery dominant vessel is totally occluded in the proximal part of the small marginal branch. A small marginal branch, which is a 1.5 mm caliber, has a 60% lesion in the mid part. The circumflex artery is completely thrombotic showing significant hanging of the dye and totally occluded in the proximal part with EDELMIRA 0 flow and no distal vessel was visualized except for dye hanging in the mid part of the circumflex artery suggesting thrombus. Subsequently, the patient was given extra dose of heparin, 0.014 inch [place] XT guidewire was advanced into the marginal branch and second wire was advanced into the circumflex artery in the AV groove into the distal part with some difficulty. This vessel was dilated multiple times starting from the proximal circumflex artery to the distal vessel multiple times. He still has significant thrombus and only EDELMIRA 1 flow was noted. The patient was started on Aggrastat and after starting the Aggrastat, the patient slowly had visualization of the distal vessels. A very distal bifurcation lesion was noted and this was dilated with a balloon and this showed marked improvement. The patient continued to be hypotensive requiring dopamine and Levophed during the procedure along with IV fluids and also the patient required atropine. The patient also developed a re-perfusion abnormalities including ventricular tachycardia requiring a bolus of IV amiodarone. Subsequently, EDELMIRA 3 flow was obtained in the dominant circumflex artery with no obvious obstructive lesions remaining. Considering diffuse nature of the disease with multiple inflations of the balloon down from proximal to distal vessel and good result. Stenting was not performed at this point. Only mild diffuse lesions were noted with balloon angioplasty. The patient continued to be hypotensive requiring dopamine and Levophed. Considering this, it was decided to proceed with placement of intraaortic balloon pump and a temporary pacemaker. Venous access was obtained in the right groin. A venous sheath was inserted by this time, the patient became tachycardic, sinus tachycardia at 130-140 and also systolic blood pressure up to 170 mmHg. Hence, no temporary pacemaker was inserted. Similarly intraaortic balloon pump was not inserted. The patient's dopamine was discontinued. Blood pressure 110 on small dose of Levophed. We will continue the same. We will continue Aggrastat for 24 hours. The patient is completely chest pain free at the end of the procedure, no respiratory distress. Breathing normally. The patient's sedation started at 4:30 a.m., received 1 dose of Versed and fentanyl and monitored throughout the procedure with a pulse oximetry, EKG monitoring and hemodynamic monitoring while the patient's moderate sedation monitoring ended at 5:30 a.m. FINAL IMPRESSION: Uncomplicated balloon angioplasty of the entire circumflex artery from proximal to distal area multiple times using 2.7 x 15 mm Trek balloon inflated from 6-14 mmHg of atmosphere inflation. No stents were inserted. EDELMIRA 0 flow was converted to EDELMIRA 3. Huge amount of clot was noted in the beginning with balloon angioplasty and Aggrastat, this completely disappeared. No stents were inserted. PLAN: At this time is to continue Aggrastat for 24 hours along with heparin and aspirin and Plavix and bring him back to the catheterization laboratory in the next 24-48 hours and evaluated by angiography. As mentioned above, the patient is completely chest pain free, heart rate is elevated at this time, requiring small dose of Levophed. Findings were explained to the patient and mother. They understand. The patient is being admitted to CCU. Presently, the patient has indwelling venous sheath in the right groin as IV access. Right radial access was closed with application of radial band. Mild hematoma in the right groin was noted. Pressure bandage will be applied. Venous sheath in place. JOB# [id number] DANIELITO/CHARI
== END 2020-01-28 18:15 | DRG 251 ==
LOC: ED 03:11 → CC1 03:58
PROVIDERS: ADMIT Internal Medicine Geriatric Medicine; ATTEND Internal Medicine
PROC: 5A1935Z Respiratory Ventilation, Less than 24 Consecutive Hours (ICD-10-PCS; principal; 2020-01-28)
PROC: 02703ZZ Dilation of Coronary Artery, One Artery, Percutaneous Approach (ICD-10-PCS; 2020-01-28)
PROC: 0BH17EZ Insertion of Endotracheal Airway into Trachea, Via Natural or Artificial Opening (ICD-10-PCS; 2020-01-28)
PROC: 4A023N7 Measurement of Cardiac Sampling and Pressure, Left Heart, Percutaneous Approach (ICD-10-PCS; 2020-01-28)
PROC: 5A12012 Performance of Cardiac Output, Single, Manual (ICD-10-PCS; 2020-01-28)
DX: I21.3 ST elevation (STEMI) myocardial infarction of unspecified site (principal); E87.2 Acidosis; I10 Essential (primary) hypertension; R57.0 Cardiogenic shock; F10.10 Alcohol abuse, uncomplicated; D72.829 Elevated white blood cell count, unspecified; D64.9 Anemia, unspecified; S30.1XXA Contusion of abdominal wall, initial encounter; F14.10 Cocaine abuse, uncomplicated; Y93.89 Activity, other specified; Y92.89 Other specified places as the place of occurrence of the external cause; Y99.8 Other external cause status; Z91.14 Patient's other noncompliance with medication regimen
CPT/HCPCS: 36415; 71045; 80048; 80061; 82803; 82962; 84484; 85007; 85025; 85520; 85610; 85730; 86850; 86900; 86901; 92920; 92950; 93005; 93458; 94002; 96374; G0378; C1725; C1757; C1769; C1887; C1894; J0171; J0282; J0461; J1265; J1644; J2060; J2250; J2405; J2560; J3010; J3246; J7030; Q9967